=== PATIENT | female | born 1970 | race Caucasian/White ===

== ENCOUNTER 2023-09-13 16:05 | Emergency (ER) | payer OTHER, SELFPAY ==
[2023-09-13 16:13] VITALS: BP 125/79; PULSE 83; RESP 16; TEMP 36.8; O2SAT 98; BMI 28.3
--- NOTE | 2023-09-13 16:19 | ED_ITS ---
HPI - Extremity Problem General: Chief complaint: Extremity Problem,Nontraumatic Stated complaint: left leg pains Time Seen by Provider: 09/13/23 16:13 Source: patient Mode of arrival: ambulatory Limitations: no limitations History of Present Illness: Patient is a 53-year-old female presents to ED today with a complaint of left calf pain that she began noticing earlier this morning when she first awoke from sleep. She states pain localizes in the calf without radiation. She states later that day she also began feeling like the extremity was swelling. She has not noticed any color or temperature changes to the leg. She has not had any recent surgeries. Denies previous DVT/PE. She has not had any periods of prolonged immobilization or car/plane rides. She is on an estradiol medication to help with perimenopausal symptoms. Denies any recent injury or trauma to the lower extremity. She denies chest pain, shortness of breath, difficulty breathing. MD Complaint: extremity pain and extremity swelling Onset (ago): hour(s) Pain Consistency: constant Location: left and lower extremity Radiation: none Relieving factors: immobilization Exacerbating factors: weight bearing and walking Associated symptoms: Reports no associated symptoms; Deny chest pain or fever(s) Review of Systems Const: Denies: fever(s) Card: Denies: chest pain Resp: Denies: dyspnea Musc: Reports: extremity pain and extremity swelling; Denies: neck pain, back pain, joint pain or joint swelling Neuro: Denies: numbness in extremities, weakness in extremities or sensory changes Physical Exam Const: COMMON NORMALS: no acute distress, average body habitus, patient oriented x3, no limitations, healthy appearing, alert and well nourished Resp: COMMON NORMALS: normal respiratory effort and clear to auscultation bilaterally AUSCULTATION: clear to auscultation bilaterally Cardio: COMMON NORMALS: regular rate and regular rhythm RATE: regular rate RHYTHM: regular rhythm GI: COMMON NORMALS: Normal to inspection, nondistended, normoactive bowel sounds present, Soft to palpation and no masses PALPATION: Yes Soft to palpation Extremity: COMMON NORMALS: full ROM, capillary refill normal, no joint enlargement and no clubbing, cyanosis or edema GENERAL: Yes normal exam except as noted LEFT LOWER EXTREMITY: Yes lower leg OTHER: reports L calf pain with palpation; negative Rodney's; mild edema present although this is subtle; DP/PT pulses palpated manually and with doppler; cap refill and sensation normal Neuro: COMMON NORMALS: patient oriented x3, moves all extremities, no focal motor deficits and no sensory deficits noted SENSORIUM/ORIENTATION: Yes alert Skin: COMMON NORMALS: no rashes or lesions noted GENERAL SKIN EXAM: no rashes or lesions noted Course Vital Signs: Vital signs: Vital Signs Temperature 98.2 F 09/13/23 16:13 Pulse Rate 83 09/13/23 16:13 Respiratory Rate 16 09/13/23 16:13 Blood Pressure 125/79 09/13/23 16:13 Pulse Oximetry 98 09/13/23 16:13 MDM - Extremity (Nontraumatic) Medical Decision Making Per certified dialysis technicianJohn, no DVT appreciated. Patient has normal sensation and pulses to the extremity. At this time she is stable for discharge from an emergency standpoint with instructions for primary care follow-up next week. Return ED precautions given. Differential Diagnosis Likely superficial thrombophlebitis, lower extremity edema and deep vein thrombosis of lower extremity Medical Records I reviewed the patient's medical records. XR interpretation done by ED provider, pending radiology final review (per US tech-negative for DVT) Discharge Plan Discharge Patient Disposition: Home Clinical Impression: Pain of left calf Condition: Stable Discharge Orders: Discharge ED (Routine); Ordered 09/13/23 Ordered By: Asuncion Smith Referrals: Stephanie Meneses [Primary Care Provider] - Activity Restrictions/Additional Instructions: As we discussed there was no evidence of a DVT on your ultrasound. Recommend you ice and elevate the extremity and take [id number] anti-inflammatories. I would like you to follow-up with primary care next week if symptoms do not seem to be improving. You need to return to the emergency department for worsening pain, swelling, color or temperature changes, numbness/tingling/loss o f sensation, significant shortness of breath or difficulty breathing, or any other concerns may have. I hope you begin to feel better soon. Coding Level of Care Code ED [employer] for Bakari Cowan
--- NOTE | 2023-09-13 16:29 | USR_ITS ---
PROCEDURE INFORMATION: Exam: US Duplex Left Lower Extremity Veins, Limited Exam date and time: 09/13/2023 4:38 PM Age: 53 years old Clinical indication: Other: Pain; Additional info: Calf pain/swelling TECHNIQUE: Imaging protocol: Real-time duplex ultrasound of the left extremity with 2-D read scale, color Doppler flow and spectral waveform analysis including responses to compression and other maneuvers (when performed) with image documentation. Limited exam focused on the left lower extremity veins. COMPARISON: No relevant prior studies available. FINDINGS: Left deep veins: Unremarkable. The common femoral, femoral, proximal profunda femoral and popliteal veins as well as the visualized deep veins of the lower leg are patent without thrombus. Normal Doppler waveforms. Normal compressibility and/or augmentation response. Superficial veins: Greater saphenous vein at the saphenofemoral junction is patent without thrombus. Soft tissues: Unremarkable. US/CV venous duplex [facility] [id number] IMPRESSION: No evidence of deep vein thrombosis.
[2023-09-13 16:56] VITALS: BP 121/76; PULSE 81; RESP 16; TEMP 36.8; O2SAT 99
== END 2023-09-13 16:57 | disposition home or self-care (01) ==
PROVIDERS: Emergency Provider Physician Assistant; PCP Nurse Practitioner Family
DX: M79.662 Pain in left lower leg (principal)
CPT/HCPCS: 93971; 99284

== ENCOUNTER 2023-12-12 09:00 | Outpatient (CLI) | payer OTHER, SELFPAY ==
--- NOTE | 2023-12-12 09:00 | MM_ITS ---
WS: [id number] SCREENING DIGITAL TOMOSYNTHESIS MAMMOGRAM WITH CAD HISTORY: SCREENING COMPARISON: 11/23/2022, 02/26/2011 Bilateral CC and MLO with tomosynthesis views submitted. Synthetic mammography reviewed. Computer aid ed detection analyzed. Breast composition: The breasts are heterogeneously dense, which may obscure small masses. No suspici ous masses, microcalcifications or architectural distortion. MM/MM scr BI tomosynthesis [id number] IMPRESSION: BI-RADS: 1 - Negative FOLLOW UP: 1 Year Follow-up
== END 2023-12-12 09:01 | disposition home or self-care (01) ==
LOC: MOBLMAM 09:03
PROVIDERS: PCP Nurse Practitioner Family; Visit Provider Nurse Practitioner Family
DX: Z12.31 Encounter for screening mammogram for malignant neoplasm of breast (principal); R92.333 Mammographic heterogeneous density, bilateral breasts
CPT/HCPCS: 77063; 77067

== ENCOUNTER 2025-01-14 08:51 | Outpatient (CLI) | payer OTHER, SELFPAY ==
--- NOTE | 2025-01-14 09:00 | MM_ITS ---
WS: [id number] BILATERAL SCREENING DIGITAL TOMOSYNTHESIS MAMMOGRAM WITH CAD HISTORY: SCREENING COMPARISON: 12/12/2023, 11/23/2022 and 02/26/2011 Bilateral CC and MLO views with tomosynthesis and synthetic mammography submitted. Computer aided detection analyzed. Breast composition: The breasts are heterogeneously dense, which may obscure small masses. No suspicious masses, microcalcifications or architectural distortion. MM/MM scr BI tomosynthesis [id number] IMPRESSION: BI-RADS: 1 - Negative FOLLOW UP: 1 Year Follow-up
== END 2025-01-14 08:52 | disposition home or self-care (01) ==
LOC: MOBLMAM 08:52
PROVIDERS: PCP Nurse Practitioner Family; Visit Provider Nurse Practitioner Family
DX: Z12.31 Encounter for screening mammogram for malignant neoplasm of breast (principal); R92.333 Mammographic heterogeneous density, bilateral breasts
CPT/HCPCS: 77063; 77067

== ENCOUNTER 2025-01-26 22:30 | Emergency (ER) | payer OTHER, SELFPAY ==
--- NOTE | 2025-01-26 22:32 | XRR_ITS ---
PROCEDURE INFORMATION: Exam: XR Chest Exam date and time: 01/26/2025 10:46 PM Age: 54 years old Clinical indication: Pain; Angina pectoris; Additional info: Chest pain TECHNIQUE: Imaging protocol: Radiologic exam of the chest. Views: 1 view. COMPARISON: No relevant prior studies available. FINDINGS: Lungs: Unremarkable. No consolidation. Pleural spaces: Unremarkable. No pleural effusion. No pneumothorax. Heart/Mediastinum: Unremarkable. No cardiomegaly. Bones/joints: Unremarkable. XR/XR chest 1V portable [id number] IMPRESSION: No acute findings.
--- OUTSIDE RECORDS SUMMARY | 2025-01-26 22:33 | XMS_ITS | Clinical Summary ---
Author Organization [facility] Address [address] [facility] Attn: Epic Prelude ADT AMAURY PECK [address] Care Team Providers Care Manager Equity Name Role Phone Unavailable Primary Care Provider Unavailabl e Allergies No known active allergies Medications mv-min/iron/folic /calcium/vitK (WOMEN'S MULTIVITAMIN ORAL) Take by mouth. 8 Active gabapentin (NEURONTIN) 100 mg capsule Take 100 mg by mouth Continuous as needed. 8 Active fesoterodine SR 24 hour (TOVIAZ) 4 mg tablet Take 1 Tablet (4 mg) by mouth daily For over active bladder. 35 Tablet 0 8 Active ibuprofen (MOTRIN) 200 mg tablet Take 200 mg by mouth every 6 hours as needed for Pain, Mild. 7 Active bismuth subsalicylate (K-PEC ANTIDIARRHEAL, BISM SUB, ORAL) Take by mouth. 7 Active cetirizine (ZyrTEC) 10 mg tablet Take 10 mg by mouth daily. Active cholecalciferol, vitamin D3, (Vitamin D3) 5,000 unit Active estradioL (ESTRACE) 2 mg tablet Take 1 Tablet by mouth daily. 5 Active simvastatin (ZOCOR) 10 mg tablet Active metoprolol tartrate (LOPRESSOR) 25 mg tabletIndications :Palpitations,JOAQUIN (dyspnea on exertion),Chest pressure Take one tablet the evening before and one tablet the morning of the CTA. Hold for a BP less than 100 or a heart rate less than 60 2 Tablet 5 Active Active Problems Problem Noted Date Diagnosed Date Palpitations 11/05/2024 JOAQUIN (dyspnea on exertion) 11/05/2024 Chest pressure 11/05/2024 Esotropia, alternating 04/11/2009 Encounters Date Type Department Care Team Description 01/14/2025 2:04 PM CDT - 01/14/2025 11:59 PM CDT Hospital Encounter [facility] [address] [place] [phone] Floyd Melgar MD Discharge Disposition: Home or Self Care 11/24/2024 Results Follow-Up [place] [address] [place] [address] [phone] Floyd Melgar MD HOLTER MONITOR 11/24/2024 Abstract [place] [address] [place] [address] [phone] Provider, Abstract 11/23/2024 Telephone [facility] [address] [place] [address] [phone] Floyd Melgar MD Cardio Results To Be Fax[facility] 11/11/2024 External Device Data STL ABSTRACTION Provider, Abstract 11/10/2024 External Device Data STL ABSTRACTION Provider, Abstract 11/10/2024 External Device Data STL ABSTRACTION Provider, Abstract 11/06/2024 Results Follow-Up [facility] [address] [place] [phone] Georgie Parker, SMALLTALK DEVELOPER BRAIN NATRIURETIC PEPTIDE, BNP OR PROBNP, ECHO COMPLETE - CONTRAST AND STRAIN IF INDICATED 11/05/2024 8:30 AM CDT Office Visit [place] [address] [place] [phone] Floyd Melgar MD Palpitations (Primary Dx); JOAQUIN (dyspnea on exertion); Chest pressure from Last 3 Months Social History Tobacco Use Types Packs/Day Years Used Date Smoking Tobacco: Never Smokeless Tobacco: Never Alcohol Use Standard Drinks/Week Comments No 0 (1 standard drink = 0.6 oz pur e alcohol) Comments Unknown Sex and Gender Information Value Date Recorded Sex Assigned at Not on file Legal Sex Female 3:36 PM SLATE WORKER Gender Identity Not on file Sexual Orientation Not on file Last Filed Vital Signs Vital Sign Reading Time Taken Comments Blood Pressure 110/60 11/05/2024 8:13 AM CDT Pulse 69 11/05/2024 8:13 AM CDT Temperature 37.1 C (98.8 F) 10/11/2017 3:40 PM CDT Respiratory Rate 16 10/11/2017 3:40 PM CDT Oxygen Saturation - - Inhaled Oxygen Concentration - - Weight 66.4 kg (146 lb 6.4 oz) 11/05/2024 8:13 A M CDT Height 154.9 cm (5' 1 ) 11/05/2024 8:13 AM CDT Body Mass Index 27.66 11/05/2024 8:13 AM CDT Plan of Treatment Upcoming Encounters Date Type Department Care Team (Late st Contact Info) Description 02/08/2025 10:30 AM SLATE WORKER Appointment [facility] CT Scan [address] [place] [phone] Floyd Melgar MD [address] [place] [phone] 02/08/2025 11:30 AM SLATE WORKER Appointment [facility] [address] [place] [phone] Floyd Melgar MD [address] [place] [phone] 02/25/2025 9:40 AM SLATE WORKER Office Visit [facility] [address] [place] [phone] Floyd Melgar MD [address] [place] [phone] Susu Bailey, SMALLTALK DEVELOPER [address] [place] [phone] 03/30/2025 9:00 AM SLATE WORKER Office Visit [facility] [place] [address] [place] [address] Genoveva Navarrete MD [address] [place] [address] Health Maintenance Due Date Last Done Comments Pre-Diabetes and Diabetes Screening 1970 HEPATITIS B VACCINES (1 of 3 - 19+ 3-dose series) 1989 HPV/Cotest (21-29) 09/03/1991 HPV/Cotest (30-65) 2000 DTAP/TDAP/TD VACCINES (1 - Tdap) 11/25/2004 11/25/19 05 BREAST CANCER SCREENING 2010 CERVICAL CANCER SCREENING 04/11/2012 PAP SMEAR 04/11/2012 04/11/2009 COLORECTAL SCREENING 09/03/2015 Colorectal Cancer Screening 09/03/2015 FIT-DNA Q 3 years 09/03/2015 FIT/FOBT Q 1 year 09/03/2015 Flex Sig/CT Colonography Q 5 years 09/03/2015 ZOSTER VACCINE (1 of 2) 2020 INFLUENZA VACCINE (#1) 2024 COVID-19 Vaccine (6 - 2024-2 6 season) 2024 01/10/2022, 10/04/2021, 03/13/2021, Additional history exists Procedures Procedure Name Priority Date/Time Associated Diagnosis Comments ECHO COMPLETE Routine 01/14/2025 3:15 PM CDT Palpitations JOAQUIN (dyspnea on exertion) Chest pressure BRAIN NATRIURETIC PEPTIDE, BNP OR PROBNP Routine 11/05/2024 9:20 AM CDT Palpitations JOAQUIN (dyspnea on exertion) Chest pressure [place] ECG ROUTINE ECG W/LEAST 12 LDS W/I&R Routine 11/05/2024 8:47 AM CDT Palpitations HOLTER MONITOR Routine 11/03/2024 from Last 3 Months Results * ECHO COMPLETE - CONTRAST AND STRAIN IF INDICATED (01/14/2025 3:15 PM CDT) EJECTION FRACTION 57 INTERFACE SYSTEM 01/14/2025 2:34 PM CDT Narrative INTERFACE SYSTEM - 01/14/2025 4:45 PM CDT [facility] Echocardiography Laboratory [address] [place] [phone] Transthoracic Echocardiography Patient: Anabel Asencio Study ID: ECHO COMPLETE - Margo Gender: F : 1970 Age: 54 Room: [facility] Study 01/14/2025 Pt Outpatient Date: Status: Study 02:34:09 PM [facility] #: [id number] Time: Ordering:Floyd Melgar MD Chief Order Dispatcher: LOLLY Summary and Conclusion: - Left ventricle: The cavity size is normal. Wall thickness is normal. Global systolic function is normal. The estimated ejection fraction is 55-60%. For Epic reporting: the left ventricular ejection fraction is 57% by biplane method of disks. No diagnostic regional wall motion abnormality identified. Doppler parameters are consistent with abnormal left ventricular relaxation (grade 1 diastolic dysfunction). The longitudinal strain is -15.2% (Normal range is -18 to -25). - Right ventricle: The cavity size is normal. Systolic function is normal. Systolic pressure is within the normal range. - Tricuspid valve: There is mild regurgitation. - Pulmonic valve: There is mild regurgitation. Procedure information: No prior study is available for comparison. Study status: Routine. Procedure: A transthoracic echocardiogram was performed. Image quality was adequate. Scanning was performed from the parasternal, apical, subcostal, and suprasternal notch acoustic windows. Study components: M-mode, 2D, complete spectral Doppler, and color Doppler. Height: 154.9cm. Height: 61in. Weight: 66.4kg. Weight: 146.4lb. BMI: 27.7kg/m^2. BSA: 1.71m^2. Blood pressure: 110/60 Study date: 01/14/2025. Study time: 02:34 PM. Location: Echo laboratory. Cardiac Anatomy: LEFT VENTRICLE: The cavity size is normal. Wall thickness is normal. Global systolic function is normal. The estimated ejection fraction is 55-60%. For Epic reporting: the left ventricular ejection fraction is 57% by biplane method of disks. No diagnostic regional wall motion abnormality identified. The longitudinal strain is -15.2% (Normal range is -18 to -25). Doppler parameters are consistent with abnormal left ventricular relaxation (grade 1 diastolic dysfunction). RIGHT VENTRICLE: The cavity size is normal. Systolic function is normal. Systolic pressure is within the normal range. LEFT ATRIUM: The atrium is normal in size. RIGHT ATRIUM: The atrium is normal in size. ATRIAL SEPTUM: No obvious PFO or ASD identified by 2D imaging and color Doppler. AORTIC VALVE: The valve is trileaflet. The leaflets are normal thickness. Mobility is not restricted. There is no stenosis. There is no significant regurgitation. MITRAL VALVE: Structurally normal valve. Mobility is not restricted. No evidence for prolapse. There is no evidence for stenosis. There is trivial regurgitation. TRICUSPID VALVE: Structurally normal valve. Mobility is unrestricted. There is no evidence for stenosis. There is mild regurgitation. PULMONIC VALVE: Not well visualized. The valve appears to be grossly normal. There is no evidence for stenosis. There is mild regurgitation. PERICARDIUM: There is no pericardial effusion. AORTA: Aortic root: The root is not dilated. Aortic arch: The vessel is not dilated. INTRACARDIAC MASS THROMBUS: No apparent intracavitary masses or thrombi detected. Measurements Left ventricle Value Right ventricle Value GLS, 2D -15.2 % SALVADOR, LAX 1.1 cm SALVADOR, LAX 4.4 cm SALVADOR 1.1 cm ESD, LAX 3.0 cm SALVADOR/bsa, LAX 2.6 cm/m^2 Left atrium Value ESD/bsa, LAX 1.8 cm/m^2 AP dim, ES 2.8 cm FS, LAX 32 % AP dim index, ES 1.6 cm/m^2 ESD major ax, A4C 5.6 cm SI dim, A4C 3.0 cm ESD/bsa major ax, A4C 3.3 cm/m^2 Area ES, A4C 7 cm^2 SALVADOR minor ax, A4C 5.6 cm Vol, S 14 ml SALVADOR/bsa minor ax, A4C 3.3 cm/m^2 Vol/bsa, S 8 ml/m^2 SALVADOR major ax, A2C 6.5 cm Vol, ES, 1-p A4C 12 ml ESD major ax, A2C 5.8 cm Vol/bsa, ES, 1-p A4C 7 ml/m^2 SALVADOR/bsa major ax, A2C 3.8 cm/m^2 Vol, ES, 1-p A2C 11 ml ESD/bsa major ax, A2C 3.4 cm/m^2 Vol/bsa, ES, 1-p A2C 6 ml/m^2 IVS, ED 0.6 cm Vol, ES, A/L 14 ml ESD 3.0 cm Vol/bsa, ES, A/L 8 ml/m^2 ESD/bsa 1.8 cm/m^2 PW, ED 0.6 cm Right atrium Value IVS/PW, ED 0.99 Area, ES 7 cm^2 EDV, 1-p A2C 36 ml Area, ES, A4C 7 cm^2 ESV, 1-p A2C 21 ml EF, 1-p A2C 59 % Aortic valve Value EDV/bsa, 1-p A2C 21 ml/m^2 Peak v, S 126 cm/sec ESV/bsa, 1-p A2C 12 ml/m^2 Peak grad, S 6 mm Hg EDV, 1-p A4C 39 ml LVOT/AV, Vpeak ratio 0.65 ESV, 1-p A4C 17 ml EF, 1-p A4C 56 % Mitral valve Value SV, 1-p A4C 22 ml Peak E 46.97 cm/sec EDV/bsa, 1-p A4C 23 ml/m^2 Peak A 61.53 cm/sec ESV/bsa, 1-p A4C 10 ml/m^2 Decel time 157 ms SV/bsa, 1-p A4C 13 ml/m^2 PHT 45 ms EDV, 2-p 37 ml Peak E/A ratio 0.76 ESV, 2-p 16 ml MVA, PHT 4.84 cm^2 EF, 2-p 57 % MVA/bsa, PHT 2.83 cm^2/m^2 SV, 2-p 15 ml Vena contracta width 1.1 cm EDV/bsa, 2-p 22 ml/m^2 ESV/bsa, 2-p 9 ml/m^2 Tricuspid valve Value SV/bsa, 2-p 8.6 ml/m^2 TR peak v 244.16 cm/sec Peak RV-RA grad, S 24 mm Hg LVOT Value Peak isabel, S 81.32 cm/sec Inferior vena cava Value Peak grad, S 3 mm Hg Diam 1.2 cm Legend: (L) and (H) rogers values outside specified reference range. [facility] are accredited with the Intersocietal Accreditation Commission - Echocardiography. Prepared and Electronically Authenticated Mateo Simmons MD Confirmed 01/14/2025 16:45 Procedure Note Mateo Simmons MD - 01/14/2025 [facility] Cardiovascular Services Echocardiography Laboratory [address] [place] [address] Transthoracic Echocardiography Patient: Anabel Asencio Study ID: JESSICA Aragon Gender: Radha : 1970 Age: 54 Room: [facility] Study 01/14/2025 Pt Outpatient Date: Status: Study 02:34:09 PM CSN #: [id number] Time: Ordering:Floyd Melgar MD Chief Order Dispatcher: LOLLY Summary and Conclusion: - Left ventricle: The cavity size is normal. Wall thickness is normal.Global systolic function is normal. The estimated ejection fraction is 55-60%.For Epic reporting: the left ventricular ejection fraction is 57% bybiplane method of disks. No diagnostic regional wall motion abnormalityidentified. Doppler parameters are consistent with abnormal left ventricularrelaxation (grade 1 diastolic dysfunction). The longitudinal strain is -15.2%(Normal range is -18 to -25). - Right ventricle: The cavity size is normal. Systolic function isnormal. Systolic pressure is within the normal range. - Tricuspid valve: There is mild regurgitation. - Pulmonic valve: There is mild regurgitation. Procedure information: No prior study is available for comparison.Study status: Routine. Procedure: A transthoracic echocardiogram wasperformed. Image quality was adequate. Scanning was performed from the parasternal, apical, subcostal, and suprasternal notch acoustic windows.Study components: M-mode, 2D, complete spectral Doppler, and color Doppler. Height: 154.9cm. Height: 61in. Weight: 66.4kg. Weight: 146.4lb.BMI: 27.7kg/m^2. BSA: 1.71m^2. Blood pressure: 110/60 Studydate: 01/14/2025. Study time: 02:34 PM. Location: Echo laboratory. Cardiac Anatomy: LEFT VENTRICLE: The cavity size is normal. Wall thickness is normal.Global systolic function is normal. The estimated ejection fraction is 55-60%.For Epic reporting: the left ventricular ejection fraction is 57% by biplane method of disks. No diagnostic regional wall motion abnormalityidentified. The longitudinal strain is -15.2% (Normal range is -18 to -25). Doppler parameters are consistent with abnormal left ventricular relaxation (grade1 diastolic dysfunction). RIGHT VENTRICLE: The cavity size is normal. Systolic function isnormal. Systolic pressure is within the normal range. LEFT ATRIUM: The atrium is normal in size. RIGHT ATRIUM: The atrium is normal in size. ATRIAL SEPTUM: No obvious PFO or ASD identified by 2D imaging and color Doppler. AORTIC VALVE: The valve is trileaflet. The leaflets are normalthickness. Mobility is not restricted. There is no stenosis. There is nosignificant regurgitation. MITRAL VALVE: Structurally normal valve. Mobility is not restricted.No evidence for prolapse. There is no evidence for stenosis. There istrivial regurgitation. TRICUSPID VALVE: Structurally normal valve. Mobility isunrestricted. There is no evidence for stenosis. There is mild regurgitation. PULMONIC VALVE: Not well visualized. The valve appears to be grosslynormal. There is no evidence for stenosis. There is mild regurgitation. PERICARDIUM: There is no pericardial effusion. AORTA: Aortic root: The root is not dilated. Aortic arch: The vessel is not dilated. INTRACARDIAC MASS THROMBUS: No apparent intracavitary masses or thrombi detected. Measurements Left ventricle Value Right ventricle Value GLS, 2D -15.2 % SALVADOR, LAX 1.1 cm SALVADOR, LAX 4.4 cm SALVADOR 1.1 cm ESD, LAX 3.0 cm SALVADOR/bsa, LAX 2.6 cm/m^2 Left atrium Value ESD/bsa, LAX 1.8 cm/m^2 AP dim, ES 2.8 cm FS, LAX 32 % AP dim index, ES 1.6cm/m^2 ESD major ax, A4C 5.6 cm SI dim, A4C 3.0 cm ESD/bsa major ax, A4C 3.3 cm/m^2 Area ES, A4C 7 cm^2 SALVADOR minor ax, A4C 5.6 cm Vol, S 14 ml SALVADOR/bsa minor ax, A4C 3.3 cm/m^2 Vol/bsa, S 8ml/m^2 SALVADOR major ax, A2C 6.5 cm Vol, ES, 1-p A4C 12 ml ESD major ax, A2C 5.8 cm Vol/bsa, ES, 1-p A4C 7ml/m^2 SALVADOR/bsa major ax, A2C 3.8 cm/m^2 Vol, ES, 1-p A2C 11 ml ESD/bsa major ax, A2C 3.4 cm/m^2 Vol/bsa, ES, 1-p A2C 6ml/m^2 IVS, ED 0.6 cm Vol, ES, A/L 14 ml ESD 3.0 cm Vol/bsa, ES, A/L 8ml/m^2 ESD/bsa 1.8 cm/m^2 PW, ED 0.6 cm Right atrium Value IVS/PW, ED 0.99 Area, ES 7 cm^2 EDV, 1-p A2C 36 ml Area, ES, A4C 7 cm^2 ESV, 1-p A2C 21 ml EF, 1-p A2C 59 % Aortic valve Value EDV/bsa, 1-p A2C 21 ml/m^2 Peak v, S 126cm/sec ESV/bsa, 1-p A2C 12 ml/m^2 Peak grad, S 6 mm Hg EDV, 1-p A4C 39 ml LVOT/AV, Vpeak ratio 0.65 ESV, 1-p A4C 17 ml EF, 1-p A4C 56 % Mitral valve Value SV, 1-p A4C 22 ml Peak E 46.97cm/sec EDV/bsa, 1-p A4C 23 ml/m^2 Peak A 61.53cm/sec ESV/bsa, 1-p A4C 10 ml/m^2 Decel time 157 ms SV/bsa, 1-p A4C 13 ml/m^2 PHT 45 ms EDV, 2-p 37 ml Peak E/A ratio 0.76 ESV, 2-p 16 ml MVA, PHT 4.84 cm^2 EF, 2-p 57 % MVA/bsa, PHT 2.83cm^2/m^2 SV, 2-p 15 ml Vena contracta width 1.1 cm EDV/bsa, 2-p 22 ml/m^2 ESV/bsa, 2-p 9 ml/m^2 Tricuspid valve Value SV/bsa, 2-p 8.6 ml/m^2 TR peak v 244.16cm/sec Peak RV-RA grad, S 24 mm Hg LVOT Value Peak isabel, S 81.32 cm/sec Inferior vena cava Value Peak grad, S 3 mm Hg Diam 1.2 cm Legend: (L) and (H) rogesr values outside specified reference range. [facility] are accredited with the[facility] Scott[facility]alesocietal Accreditation Commission - Echocardiography. Prepared and Electronically Authenticated Mateo Simmons MD Confirmed 01/14/2025 16:45 us Floyd Layla Melgar MD US ORDERABLES Final Result INTERFACE SYSTEM Refer to clinic/hospital department * BRAIN NATRIURETIC PEPTIDE, BNP OR PROBNP (11/05/2024 9:20 AM CDT) PROBNP, N TERMINAL 44 <125 pg/mL [facility] Comment: Test Performed at: [facility] [address] [place] [address] Nilda Marinelli MD Blood 11/05/2024 9:20 AM CDT 11/05/2024 9:20 AM CDT us Floyd Melgar MD CHEMISTRY ORDERA BLES Final Result Performing Organization Address City/[facility]/ZIP Co de Phone Number [facility] [phone] [facility] [id number] [place] [phone] * [place] ECG ROUTINE ECG W/LEAST 12 LDS W/I&R (11/05/2024 8:47 AM CDT) Narrative [facility] - 11/05/2024 8:47 AM CDT Floyd Melgar MD 11/05/2024 8:51 AM Sinus rhythm, otherwise normal Procedure Note Floyd Melgar MD - 11/05/2024 8:47 AM CDT Sinus rhythm, otherwise normal us Floyd Melgar MD ECG ORDERABLES Final Result Performing Organization Address [facility] Co de Phone Number [facility] CLIA [id number] [address] [facility] [address] [facility] [address] [place] [address], [place] [phone] * HOLTER MONITOR (11/03/2024) Stephanie Meneses SMALLTALK DEVELOPER CARDIAC SERVICES ORDERABLES F inal Result from Last 3 Months Insurance [facility] [place]
--- OUTSIDE RECORDS SUMMARY | 2025-01-26 22:33 | XMS_ITS | Encounter Summary ---
Author Organization [facility] Address [address] [place] [address] Care Team Providers Care Civil Design Specialist Name Role Phone Unavailable Primary Care Provider Unavailabl e Encounter Details Date Type Department Care Team (Latest Contact Info) Description 01/20/2001 Outpatient Historical [facility] Tang Gambino MD [address] [place] [phone] Radial styloid tenosynovitis (Primary Dx) Social History Tobacco Use Types Packs/Day Years Used Date Smoking Tobacco: Never Assessed Comments Unknown Sex and Gender Information Value Date Recorded Sex Assigned at Not on file Legal Sex Female 4:19 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
--- OUTSIDE RECORDS SUMMARY | 2025-01-26 22:33 | XMS_ITS | Encounter Summary ---
Author Organization [facility] Address [address] [place] [address] Care Team Providers Care Entry Level Sales Representative Name Role Phone Unavailable Primary Care Provider Unavailabl e Encounter Details Date Type Department Care Team (Latest Contact Info) Description 08/26/[address] [facility] [place] [address] [phone] Ne Chin, DO [address] [place] [address] Enthesopathy of unspecified site (Primary Dx) Social History Tobacco Use Types Packs/Day Years Used Date Smoking Tobacco: Never Assessed Comments Unknown Sex and Gender Information Value Date Recorded Sex Assigned at Not on file Legal Sex Female 4:19 AM INFORMATION TECHNOLOGY SECURITY ANALYST Gender Identity Not on file Sexual Orientation Not on file documented as of this encounter Plan of Treatment Not on file documented as of this encounter Visit Diagnoses Diagnosis Enthesopathy of unspecified site- Primary documented in this encounter
--- OUTSIDE RECORDS SUMMARY | 2025-01-26 22:33 | XMS_ITS | Clinical Summary ---
Author Organization [facility] Address [address] [place] [address] Care Team Providers Care Mixing Machine Attendant Name Role Phone Unavailable Primary Care Provider Unavailabl e Allergies No known active allergies Medications ibuprofen (MOTRIN) 200 mg tablet Take 200 mg by mouth every 6 hours as needed for Pain, Mild. Active BISMUTH SUBSALICYLATE (K-PEC ANTIDIARRHEAL, BISM SUB, ORAL) Take by mouth. Active gabapentin (NEURONTIN) 100 mg capsule Take 100 mg by mouth Continuous as needed. Active mv-min/iron/folic /calcium/vitK (WOMEN'S MULTIVITAMIN ORAL) Take by mouth. Activ e fesoterodine SR 24 hour (TOVIAZ) 4 mg tablet Take 1 Tablet (4 mg) by mouth daily For over active bladder. 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 Not on file Not on file Last Filed Vital Signs Vital Sign Reading Time Taken Comments Blood Pressure 122/72 10/11/2017 3:40 PM CDT Pulse 88 10/11/2017 3:40 PM CDT Temperature 37.1 C (98.8 F) 10/11/2017 3:40 PM CDT Respiratory Rate 16 10/11/2017 3:40 PM CDT Oxygen Saturation 98% 10/11/2017 3:40 PM CDT Room Air Inhaled Oxygen Concentration - - Weight 57 kg (125 lb 9.6 oz) 10/11/2017 3:40 PM CDT Height 154.9 cm (5' 1 ) 10/11/2017 3:40 PM CDT Body Mass Index 23.73 10/11/2017 3:40 PM CDT Plan of Treatment Health Maintenance Due Date Last Done Comments DTAP/TDAP/TD VACCINES (1 - Tdap) 1989 HEPATITIS B VACCINES (1 of 3 - 19+ 3-dose series) 08/07 HPV/Cotest (21-29) 09/03/1991 HPV/Cotest (30-65) 2000 BREAST CANCER SCREENING 2010 CERVICAL CANCER SCREENING 04/11/2012 PAP SMEAR 04/11/2012 04/11/2009 COLORECTAL SCREENING 09/03/2015 Colorectal Cancer Screening 09/03/2015 FIT-DNA Q 3 years 09/03/2015 FIT/FOBT Q 1 year 09/03/2015 Flex Sig/CT Colonography Q 5 years 09/03/2015 ZOSTER VACCINE (1 of 2) 2020 INFLUENZA VACCINE (#1) 2024 Procedures Procedure Name Priority Date/Time Associated Diagnosis Comments CERV/VAG CYTOPATH, THIN PREP CULTURE ROOM WORKER Routine 04/11/2009 3:11 PM ANTITANK ASSAULT GUNNER from Last 3 Months or Most Recently Relevant to Health Maintenance Results * CERV/VAG CYTOPATH, THIN PREP CULTURE ROOM WORKER (04/11/2009 3:11 PM ANTITANK ASSAULT GUNNER) PATHOLOGY/CYT OLOGY REPORT [facility] Anatomic Pathology Dept [address] [place] [phone] Patient: ANABEL WALTER Accn No: [id number] , [id number] Collected: 04/11/2009 3:11:00 PM CYTOLOGY DEHYDRATING PRESS OPERATOR FINAL REPORT - - CULTURE ROOM WORKER PAP History Specimen Type: Endocervical LMP: None Provided Previous Pap History: 2008 WNL Specimen Adequacy Satisfactory for interpretation. The smear shows sufficient numbers of endocervical or metaplastic cells. Diagnosis NEGATIVE FOR INTRAEPITHELIAL LESION OR MALIGNANCY. (Previously noted as Within Normal Limits) Secretary Receptionist/ Pathologist: 04/19/09 Completed by: DESTINI FELICIANO (Electronically signed by) 04/19/09 Comment Routine follow-up is suggested. Important Info About Pap Smears HPV Testing off the Thin Prep vial can be done as a means of further evaluating a Thin Prep Report. For information about ordering the HPV test, phone Cytology at . Treatment or follow-up recommendations (if any) that are considered within this report are based upon general recommendations as contained in 2001 Consensus Guidelines For Cervical Cytological Abnormalities SUDHEER: July 30, 2001, and are provided as a general guideline rather than as a specific recommendation. Final decisions about the most appropriate treatment and follow-up should be made on an individualized basis by the treating physician in consultation with his/her patient. [facility] 04/11/2009 3:11 PM ANTITANK ASSAULT GUNNER us Kirti Song MD PATHOLOGY/CYTOLOGY ORDERABLES E dited INTERFACE SYSTEM Refer to clinic/hospital department [facility] CLIA# [id number] [facility] [place] [address] from Last 3 Months or Most Recently Relevant to Health Maintenance
--- OUTSIDE RECORDS SUMMARY | 2025-01-26 22:33 | XMS_ITS | Encounter Summary ---
Author Organization [facility] Address [address] [place] [address] Care Team Providers Care Sample Wrapper Name Role Phone Unavailable Primary Care Provider Unavailabl e Encounter Details Date Type Department Care Team (Latest Contact Info) Description 10/14/2000 Outpatient Historical [facility] Tang Gambino MD [address] [place] [phone] Radial styloid tenosynovitis (Primary Dx) Social History Tobacco Use Types Packs/Day Years Used Date Smoking Tobacco: Never Assessed Comments Unknown Sex and Gender Information Value Date Recorded Sex Assigned at Not on file 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
--- OUTSIDE RECORDS SUMMARY | 2025-01-26 22:33 | XMS_ITS | Encounter Summary ---
Author Organization [facility] Address [address] [place] [address] Care Team Providers Care Transport Aide Name Role Phone Unavailable Primary Care Provider Unavailabl e Encounter Details Date Type Department Care Team (Latest Contact Info) Description 02/03/1999 Outpatient Historical [facility] Medicine [address] [phone] Aguilar Nesbitt MD [address] [place] [phone] Diarrhea (Primary Dx) Social History Tobacco Use Types Packs/Day Years Used Date Smoking Tobacco: Never Assessed Comments Unknown Sex and Gender Information Value Date Recorded Sex Assigned at Not on file 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
--- OUTSIDE RECORDS SUMMARY | 2025-01-26 22:33 | XMS_ITS | Encounter Summary ---
Author Organization [facility] Address [address] [place] [address] Care Team Providers Care Look Out Tower Fire Watcher Name Role Phone Unavailable Primary Care Provider Unavailabl e Encounter Details Date Type Department Care Team (Latest Contact Info) Description 07/25/2000 Outpatient Historical [facility] Family Medicine [place] [id number] [phone] Ne Chin, DO [address] [place] [address] Enthesopathy of unspecified site (Primary Dx); Radial styloid tenosynovitis Social History Tobacco Use Types Packs/Day Years Used Date Smoking Tobacco: Never Assessed Comments Unknown Sex and Gender Information Value Date Recorded Sex Assigned at Not on file 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
--- OUTSIDE RECORDS SUMMARY | 2025-01-26 22:33 | XMS_ITS | Encounter Summary ---
Author Organization [facility] Address [address] [place] [address] Care Team Providers Care Stripper Preliminary Name Role Phone Unavailable Primary Care Provider Unavailabl e Encounter Details Date Type Department Care Team (Latest Contact Info) Description 02/20/1999 Outpatient Historical [facility] Medicine [address] [phone] Aguilar Nesbitt MD [address] [place] [phone] Irritable bowel syndrome (Primary Dx); Contraceptive surveillance, unspecified Social History Tobacco Use Types Packs/Day Years Used Date Smoking Tobacco: Never Assessed Comments Unknown Sex and Gender Information Value Date Recorded Sex Assigned at Not on file 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
--- OUTSIDE RECORDS SUMMARY | 2025-01-26 22:33 | XMS_ITS | Encounter Summary ---
Author Organization [facility] Address [address] [place] [address] Care Team Providers Care Receiving Specialist Name Role Phone Unavailable Primary Care Provider Unavailabl e Encounter Details Date Type Department Care Team (Latest Contact Info) Description 11/29/2000 Outpatient Historical [facility] Tang Gambino MD [address] [place] [phone] Radial styloid tenosynovitis (Primary Dx) Social History Tobacco Use Types Packs/Day Years Used Date Smoking Tobacco: Never Assessed Comments Unknown Sex and Gender Information Value Date Recorded Sex Assigned at Not on file 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
--- OUTSIDE RECORDS SUMMARY | 2025-01-26 22:33 | XMS_ITS | Encounter Summary ---
Author Organization [facility] Address [address] [place] [address] Care Team Providers Care Professor Of Art History Name Role Phone Unavailable Primary Care Provider Unavailabl e Encounter Details Date Type Department Care Team (Latest Contact Info) Description 08/05/2000 Outpatient Historical [facility] [place] [facility] [address] [phone] Ne Chin, DO [address] [place] [address] Pain in joint, forearm (Primary Dx); Radial styloid tenosynovitis Social History Tobacco Use Types Packs/Day Years Used Date Smoking Tobacco: Never Assessed Comments Unknown Sex and Gender Information Value Date Recorded Sex Assigned at Not on file 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
--- OUTSIDE RECORDS SUMMARY | 2025-01-26 22:33 | XMS_ITS | Encounter Summary ---
Author Organization [facility] Address [address] [place] [address] Care Team Providers Care Academic Adviser Name Role Phone Unavailable Primary Care Provider Unavailabl e Encounter Details Date Type Department Care Team (Latest Contact Info) Description 02/07/1999 Outpatient Historical [facility] Medicine [address] [phone] Kirti Song MD [address] [place] [phone] Diarrhea (Primary Dx) Social History Tobacco Use Types Packs/Day Years Used Date Smoking Tobacco: Never Assessed Comments Unknown Sex and Gender Information Value Date Recorded Sex Assigned at Not on file 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
--- NOTE | 2025-01-26 22:34 | ED_ITS ---
HPI - General Adult General: Stated complaint: Heart Problems, Heavy/tightness Time Seen by Provider: 01/26/25 22:32 History of Present Illness: Patient is a 53-year-old female with a past medical history Related Data Allergies Allergy/AdvReac Type Severity Reaction Status Date / Time No Known Allergies Allergy Verified 09/13/23 16:14 Discharge Plan Discharge Condition: Stable Referrals: Stephanie Meneses [Primary Care Provider, Family Practice] Print Language: Citizen Of [place] Coding Level of Care Code ED Manager Heavy Duty for Bakari Cowan
[2025-01-26 22:38] VITALS: BP 165/98; PULSE 83; RESP 16; O2SAT 100; BMI 27.8
[2025-01-26 22:41] VITALS: TEMP 36.7
--- NOTE | 2025-01-26 22:42 | ECG_ITS ---
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 Measurements Intervals Raymond Rate: 76 P: 68 NJ: 142 QRS: 69 QRSD: 86 T: 55 QT: 396 QTc: 447 Interpretive Statements SINUS RHYTHM No previous ECG available for comparison Electronically Signed On 01-27-2025 22:53:45 CDT by Kelli Palacios M.D. [id number]
--- NOTE | 2025-01-26 22:50 | ED_ITS ---
HPI - General Adult 2 General: Chief complaint: Chest Pain Stated complaint: Heart Problems, Heavy/tightness Time Seen by Provider: 01/26/25 22:32 History of Present Illness: Patient is a 54-year-old female with a past medical history of HLD on a statin w/cc of chest pressure. She states it feels like pressure in the middle of her chest. This is not clearly exertional, states it is brought on by stress. She states trying to calm myself down improves the pressure. Pain does not radiate. Patient also reports subjective fatigue and shortness of breath. She has not had a fever, cough, hemoptysis, syncope. She does not smoke. She denies abdominal pain, nausea, vomiting, diaphoresis. No change in bowel habits, no blood in stool, no dysuria or hematuria. She has not experienced any lower extremity asymmetry or edema. Patient has been evaluated with cardiology in the past several months. She states that in 2020, she had a stress test which was OK. She's also recently had an Echo done. Patient has an upcoming appointment with Dr. Boss for second opinion and is scheduled for cardiac CTA Feb 08. Related Data Allergies Allergy/AdvReac Type Severity Reaction Status Date / Time codeine Allergy Unknown Verified 01/26/25 22:41 Physical Exam 2 Narrative: EXAM NARRATIVE: Vital signs were reviewed. Patient is alert and oriented. Patient is breathing comfortably, no increased WOB or accessory muscle use. SpO2 is above 95% on RA. Patient has clear lungs b/l, no rhonchi, wheezing or crackles. No hypotension or tachycardia. Abdomen is soft, nondistended and nontender. Patient is moving all extremities, no deformity or gross injury. No lower extremity edema or asymmetry. Course 2 Vital Signs: Vital signs: Vital Signs Temperature 98.1 F 01/26/25 22:41 Pulse Rate 65 01/27/25 00:54 Respiratory Rate 16 01/26/25 22:38 Blood Pressure 119/65 01/27/25 00:54 Pulse Oximetry 97 01/27/25 00:54 Oxygen Delivery Me thod Room Air 01/27/25 00:54 MDM - General Adult Medical Decision Making 54-year-old female with a chief complaint of nonexertional chest pressure that has been ongoing intermittently since October, triggered by stress, relieved with calming herself. Differential diagnosis includes, but is not limited to, ACS, myocarditis, pericarditis, pneumonia, viral upper respiratory infection, PE, GERD, other. On initial exam, patient is hemodynamically stable nontoxic appearing. EKG was personally reviewed and interpreted and shows normal sinus rhythm with a heart rate of 76, normal axis, normal intervals, no evidence of ST segment elevation. There are no morphologic abnormality suggestive of WPW, Brugada or ARVD. Patient was screened with CBC, BMP, troponin, BNP, EKG and chest x-ray. Patient has a normal white blood cell count, she is not anemic. Patient does not have any actionable electrolyte abnormalities, has normal kidney function. Patient has a normal troponin with a negative delta, normal BNP and no evidence of heart failure clinically. Chest x-ray is clear of consolidation, pneumothorax, pleural effusion or pulmonary edema. Patient's heart score is 2-3, risk factor being high cholesterol, 1 point for age and 1 point for slightly suspicious for moderately suspicious history. She has had a little bit of improvement with nitroglycerin which may be due to vasospasms. However, at this time her presentation is not consistent with ACS. I do feel that patient is overall low risk for ACS and may be discharged with scheduled outpatient follow-up. Patient was counseled on supportive care at home, return precautions and discharged in stable condition. Lab Data 01/26/25 22:55 01/26/25 22:55 Radiology Impressions Chest X-Ray 01/26/25 22:32 IMPRESSION: No acute findings. Laboratory Results WBC 6.59 10^3/uL (3.29-11.43) 01/26/25 22:55 RBC 4.70 10^6/uL (3.85-5.65) 01/26/25 22:55 Hgb 14.00 g/dL (11.27-16.99) 01/26/25 22:55 Hct 41.1 % (36-47) 01/26/25 22:55 MCV 87.4 fl (85-98) 01/26/25 22:55 MCH 29.8 pg (27-33) 01/26/25 22:55 MCHC 34.1 g/dL (30-55) 01/26/25 22:55 RDW 11.6 % (12.1-15.1) L 01/26/25 22:55 Plt Count 229 10^3/cmm (157-399) 01/26/25 22:55 MPV 9.3 fL (7.4-10.4) 01/26/25 22:55 Neut % (Auto) 53.6 % 01/26/25 22:55 Lymph % (Auto) 37.3 % 01/26/25 22:55 [place] % (Auto) 5.6 % 01/26/25 22:55 Eos % (Auto) 2.6 % 01/26/25 22:55 Baso % (Auto) 0.6 % 01/26/25 22:55 Neut # (Auto) 3.53 10^3/uL (1.8-7.7) 01/26/25 22:55 Lymph # (Auto) 2.5 10^3/uL (0.8-4.8) 01/26/25 22:55 [place] # (Auto) 0.4 10^3/uL (0.2-0.9) 01/26/25 22:55 Eos # (Auto) 0.2 10^3/uL (0.0-0.8) 01/26/25 22:55 Baso # (Auto) 0.0 10^3/uL (0.0-0.1) 01/26/25 22:55 Nucleated RBC % (auto) 0 % 01/26/25 22:55 Nucleated RBCs # 0.0 /100WBC 01/26/25 22:55 Sodium 141 mmol/L (136-145) 01/26/25 22:55 Potassium 3.8 mmol/L (3.5-5.1) 01/26/25 22:55 Chloride 103 mmol/L (98-107) 01/26/25 22:55 Carbon Dioxide 26 mmol/L (22-29) 01/26/25 22:55 Anion Gap 15.8 (5-19) 01/26/25 22:55 BUN 10 mg/dL (6-20) 01/26/25 22:55 Creatinine 0.7 mg/dL (0.5-0.9) 01/26/25 22:55 GFR Calculation 87.2 mL/min (90-130) L 01/26/25 22:55 Glucose 121 mg/dL (65-115) H 01/26/25 22:55 Calculated Osmolality 292 mOsm/kg (285-295) 01/26/25 22:55 Calcium 9.2 mg/dL (8.5-10.5) 01/26/25 22:55 Troponin T Baseline < 6 ng/L (0-10) 01/26/25 22:55 Troponin T 120 Minute < 6.0 ng/L (0-10) 01/27/25 00:38 Delta Troponin T 0 ABS# (0-10) 01/27/25 00:38 NT-Pro-B Natriuret Pep 71 pg/mL (0-125) 01/26/25 22:55 All radiology interpretation(s) finalized by discharge Discharge Plan Discharge Patient Disposition: Home Clinical Impression: Atypical chest pain Condition: Stable Discharge Orders: Discharge ED (Routine); Ordered 01/27/25 Ordered By: Kaye Bonilla Referrals: Stephanie Meneses [Primary Care Provider, Family Practice] Patient Instructions: Opioid Safety, Pain Management, Patient Portal & Miriam Instructions, Chest Pain (ED) Activity Restrictions/Additional Instructions: Please continue to monitor your condition closely at home. Take Ibuprofen 400mg and Tylenol 500-1000mg every six hours for pain and inflammation. If your condition worsens or additional concerns arise, please return promptly to the emergency department for reassessment. Follow up with Dr. Boss as scheduled. Print Language: Kinyarwanda Coding Level of Care Code ED Golf Ball Cover Treater for Bakari Cowan
[2025-01-26 22:59] LABS: Hematocrit 41.1 % (36-47); Hemoglobin 14.00 g/dL (11.27-16.99); Mean Corpuscular HGB Conc 34.1 g/dL (30-55); Mean Corpuscular Hemoglobin 29.8 pg (27-33); Mean Corpuscular Volume 87.4 fl (85-98); Nucleated Red Blood Cells % 0 %; Platelet Count 229 10^3/cmm (157-399); Red Blood Count 4.70 10^6/uL (3.85-5.65); White Blood Count 6.59 10^3/uL (3.29-11.43)
[2025-01-26 23:01] VITALS: BP 128/104; PULSE 77; O2SAT 97
[2025-01-26 23:17] LABS: Troponin(5th) Baseline < 6 ng/L (0-10)
[2025-01-26 23:20] LABS: Anion Gap 15.8 (5-19); Blood Urea Nitrogen 10 mg/dL (6-20); Calcium 9.2 mg/dL (8.5-10.5); Carbon Dioxide 26 mmol/L (22-29); Chloride 103 mmol/L (98-107); Creatinine Clr Calc Pharmacy 80.2812; Glucose 121 mg/dL (65-115); Osmolality Calculated 292 mOsm/kg (285-295); Potassium 3.8 mmol/L (3.5-5.1); Sodium 141 mmol/L (136-145)
[2025-01-26 23:41] VITALS: BP 103/70; PULSE 68; O2SAT 97
[2025-01-27 00:06] LABS: NT Pro B Type Natriuretic Pept 71 pg/mL (0-125)
[2025-01-27 00:11] VITALS: BP 119/77; PULSE 67; O2SAT 98
[2025-01-27 00:54] VITALS: BP 119/65; PULSE 65; O2SAT 97
[2025-01-27 01:00] LABS: Troponin 5 2HR < 6.0 ng/L (0-10); Troponin 5 2HR Delta 0 ABS# (0-10)
[2025-01-27 01:25] VITALS: BP 123/78; PULSE 63; O2SAT 98
== END 2025-01-27 01:30 | disposition home or self-care (01) ==
PROVIDERS: Emergency Provider Emergency Medicine; PCP Nurse Practitioner Family
DX: R07.89 Other chest pain (principal)
CPT/HCPCS: 36415; 71045; 80048; 83880; 84484; 85025; 93005; 99285; J9999

== ENCOUNTER → 2025-02-22 12:55 | Outpatient (BNVA) | payer OTHER, SELFPAY | PROVIDERS: PCP Nurse Practitioner Family; Referring Provider Nurse Practitioner Family; Visit Provider Internal Medicine Cardiovascular Disease | DX: I25.10 Atherosclerotic heart disease of native coronary artery without angina pectoris (principal) | CPT/HCPCS: 36415; 80048 ==

== ENCOUNTER → 2025-03-10 08:58 | Outpatient (BNVA) | payer OTHER, SELFPAY | PROVIDERS: PCP Nurse Practitioner Family; Referring Provider Internal Medicine Cardiovascular Disease; Visit Provider Internal Medicine Cardiovascular Disease | DX: I25.10 Atherosclerotic heart disease of native coronary artery without angina pectoris (principal) | CPT/HCPCS: 80048 ==